=== PATIENT | female | born 1945 | race African-American/Black ===

== ENCOUNTER 2021-03-28 19:32 | Inpatient (IN) ==
[2021-03-28] MEDS ORDERED: SODIUM CHLORIDE 0.9% 1,000 ML IV STA ×2 (20:04→20:23)
[2021-03-28] MEDS ORDERED: AMIODARONE INJ 150 MG in DEXTROSE 5% 100 ML IV ONE (21:24)
[2021-03-28 21:25] LABS: Basophils % 0.1 % (0.0-0.8); Hemoglobin 9.5 GM/DL (12.0-16.0); Immature Granulocytes % 0.7 %; Immature Granulocytes Absolute 0.07 #; Lymphocytes # 1.1 10*3/uL (1.4-4.0); Lymphocytes % 11.4 % (21.3-54.2); Mean Corpuscular HGB Conc 31.7 GM/DL (32-36); Mean Corpuscular Volume 97.4 FL (87-102); Mean Platelet Volume 9.4 FL (9.6-12.0); Monocytes % 4.5 % (1.7-12.7); Neutrophils % 83.3 % (38.7-73.9); Platelet Count 128 T/CUMM (130-400); Red Blood Count 3.08 MC/CUMM (3.8-5.5); Red Cell Distribution Width 13.3 % (9.3-17.3); White Blood Count 9.5 T/CUMM (4-12)
[2021-03-28] MEDS ORDERED: AMIODARONE INJ 450 MG in DEXTROSE 5% 241 ML IV SCH (21:30)
[2021-03-28 21:35] LABS: INR 1.3; PT Patient Result 13.9 SECS (10.5-12.0)
[2021-03-28 21:48] LABS: Alanine Aminotransferase 33 U/L (13-56); Alkaline Phosphatase 66 U/L (45-117); Aspartate Amino Transferase 52 U/L (0-37); Blood Urea Nitrogen 46 MG/DL (7-18); Calcium 8.6 MG/DL (8.5-10.1); Carbon Dioxide 14 MMOL/L (21-32); Estimated Glom Filtration Rate 18 ML/MIN; Glucose 135 MG/DL (74-106); Osmolality,Calculated 292.4 MOS/KG (273-304); Potassium 5.7 MMOL/L (3.5-5.1); Sodium 140 MMOL/L (136-145)
[2021-03-28] MEDS ORDERED: SODIUM CHLORIDE 0.9% 600 ML IV STA (21:51)
[2021-03-28] MEDS ORDERED: PIPERACILLIN/TAZOBACTAM 3,375 MG in SODIUM CHLORIDE 0.9% 100 ML IV STA (21:52)
[2021-03-28] MEDS ORDERED: INSULIN REGULAR 100 UNIT/ML IV STA (21:59)
[2021-03-28] MEDS ORDERED: CALCIUM GLUCONATE 1,000 MG in SODIUM CHLORIDE 0.9% 100 ML IV ONE (21:59)
[2021-03-28] MEDS ORDERED: DEXTROSE 50% 25 GM/50 ML VIAL IV STA (21:59)
[2021-03-28] MEDS ORDERED: DEXTROSE 50% 25 GM/50 ML SYRINGE IV STA (22:05)
[2021-03-28] MEDS ORDERED: SODIUM POLYSTYRENE SULFATE 15 GM/60 ML BOTTLE PO STA (22:11)
[2021-03-28] MEDS ORDERED: EPINEPHrine 1 MG/10 ML SYRINGE IV ONE (22:23)
[2021-03-28] MEDS ORDERED: SODIUM BICARBONATE 50 MEQ/50 ML SYRINGE IV ONE (22:24)
[2021-03-28] MEDS ORDERED: CALCIUM CHLORIDE 1,000 MG/10 ML SYRINGE IV ONE (22:25)
[2021-03-28] MEDS ORDERED: ETOMIDATE 20 MG/10 ML VIAL IV ONE ×3 (22:26→22:31)
[2021-03-28] MEDS ORDERED: ROCURONIUM 100 MG/10 ML VIAL IV ONE ×2 (22:30→22:32)
[2021-03-28] MEDS ORDERED: CEFEPIME 1,000 MG in SODIUM CHLORIDE 0.9% 100 ML IV STA (23:03)
[2021-03-28] MEDS ORDERED: VANCOMYCIN INJ 1,250 MG in SODIUM CHLORIDE 0.9% 250 ML IV STA (23:03)
[2021-03-29] MEDS ORDERED: NOREPINEPHRINE 8 MG in SODIUM CHLORIDE 0.9% 242 ML IV PRN (01:22)
[2021-03-29 02:08] VITALS: BP 75/60
== END 2021-03-29 00:18 | disposition expired ==
LOC: EDBD → EDUNIT# → N.ED 19:32 → N.EDINP 22:10 → N.ED 03-29 00:18 → N.EDINP 03-29 03:07 → N.ED 03-29 03:07
PROVIDERS: ADMIT Internal Medicine; ATTEND Internal Medicine